=== PATIENT | female | born 1995 | race Caucasian/White ===

== ENCOUNTER → 2017-01-25 | Day surgery (SDC) | payer OTHER ==
[~2017-01-25] VITALS: Ht 175.3 cm; Wt 76.3 kg
[~2017-01-25] MED LIST: BCPILLS PO; MECL1TAB42 PO
[2017-01-25 13:37] VITALS: BP 113/77; PULSE 66; TEMP 36.6; O2SAT 98
[2017-01-25 13:41] VITALS: Ht 175.3 cm; Wt 76.3 kg
--- NOTE | 2017-01-26 10:12 | Procedure Note ---
Procedure Note Date of Service Jan 25, 2017. Procedure Note Procedure performed: Upright tilt table testing Staff ash worker:Brian Culver Indication: Occasional syncope and presyncope Results: Patient's presenting hemodynamics included a blood pressure of 101/73 with a pulse of 62. With head-up tilting, there was no significant hemodynamic derangement. There was no significant change in the hemodynamics. The pulse did rise with tilting but not to the degree I would consider diagnostic for her POTS. Patient had some mild dizziness just prior to the conclusion of the procedure, but no recreation of her index symptoms. Normal head-up tilt table test without evidence of postural orthostatic tachycardia, vasodepressor or cardioinhibitory affect.
== END | disposition home or self-care (01) ==
LOC: C.CATH 12:06
PROVIDERS: ATTEND Internal Medicine Clinical Cardiac Electrophysiology
DX: R55 Syncope and collapse (principal)